=== PATIENT | female | born 1965 | race Two or more races ===

== ENCOUNTER 2024-06-13 02:11 | Emergency (ER) | payer OTHER ==
[~2024-06-13] VITALS: Ht 167.6 cm; Wt 59.4 kg
[2024-06-13 02:43] VITALS: BP 119/80; TEMP 97.9; O2SAT 97
== END 2024-06-13 04:44 ==
LOC: ER 02:20
DX: R09.89 Other specified symptoms and signs involving the circulatory and respiratory systems (principal); I10 Essential (primary) hypertension
CPT/HCPCS: 71045-TC